=== PATIENT | male | born 1980 | race Caucasian/White ===

== ENCOUNTER → 2020-09-25 | Outpatient (CLI) | payer OTHER | LOC: KOH-I 11:45 | DX: M54.42 Lumbago with sciatica, left side (principal) | CPT/HCPCS: 72100 ==

== ENCOUNTER → 2020-10-02 | Outpatient (CLI) | payer OTHER | LOC: KOH-I 11:01 | DX: M79.605 Pain in left leg (principal) | CPT/HCPCS: 93971 ==